=== PATIENT | male | born 1940 | race Caucasian/White ===

== ENCOUNTER 2020-09-10 10:53 | Inpatient (IN) | payer MEDICARE ==
[2020-09-10 12:07] LABS: ALT (SGPT) 14 U/L (8-55); AST (SGOT) 25 U/L (5-34); Albumin 2.9 g/dL (3.4-4.8); Alkaline Phosphatase 141 U/L (40-110); Anion Gap 8 mmol/L (10-20); BUN (Urea Nitrogen) 16 mg/dL (8.4-25.7); Bilirubin, Total 0.4 mg/dL (0.2-1.2); Calc. Creatinine Clearance 0 mL/min (70-130); Calcium 7.8 mg/dL (7.8-10.44); Carbon Dioxide 25 mmol/L (23-31); Chloride 107 mmol/L (98-107); Globulin 2.7 g/dL (2.4-3.5); Glucose 112 mg/dL (83-110); Potassium 3.2 mmol/L (3.5-5.1); Protein, Total 5.6 g/dL (5.8-8.1); Sodium 137 mmol/L (136-145)
[2020-09-10 12:12] LABS: Hemoglobin 13.3 g/dL (14.0-18.0); Mean Corpuscular HGB CONC 33.4 g/dL (32.0-36.0); Mean Corpuscular Hemoglobin 32.1 pg (27.0-31.0); Mean Platelet Volume 9.3 fL (7.4-10.4); Platelet Count 118 thou/uL (130-400); Red Blood Cell (RBC) Count 4.15 mill/uL (4.70-6.10); White Blood Cell (WBC) Count 5.7 thou/uL (4.8-10.8)
[2020-09-10 12:13] LABS: Band 5 % (5-11); Eosinophils 3 % (0-10); Lymphocytes 25 % (21-51); MDiff Complete? YES; Monocytes 7 % (0-10); Myelocyte 1 % (0-0); Neutrophil 57 % (42-75); Platelet Morphology Comment Appears Decreased; Polychromasia SLIGHT = 2-3 cells (100X) (0-2/hpf); Reactive Lymphocytes 2 % (0-10)
[2020-09-10 12:24] LABS: CKMB 0.9 ng/mL (0-6.6)
[2020-09-10] MEDS ORDERED: Aspirin Chewable 81 MG TAB ONE (12:51)
[2020-09-10] MEDS ORDERED: cefTRIAXone\\ROCEPHIN 2 GM VIAL ONE (12:51)
[2020-09-10] MEDS ORDERED: Potassium Chloride 20 MEQ TAB ONE (12:51)
[2020-09-10] MEDS ORDERED: Azithromycin 500 MG VIAL ONE (12:51)
[2020-09-10] MEDS ORDERED: Ondansetron ODT 4 MG TAB PO PRN (13:55)
[2020-09-10] MEDS ORDERED: Acetaminophen 650 MG Suppository PR PRN (13:55)
[2020-09-10] MEDS ORDERED: Ondansetron PF 4 MG/2 ML Vial IVP PRN (13:55)
[2020-09-10] MEDS ORDERED: Acetaminophen 325 MG TAB PO PRN (13:55)
[2020-09-10] MEDS ORDERED: Guaifenesin DM 100-10/5 ML UDCUP PO PRN (13:55)
[2020-09-10 15:01] LABS: Troponin I 0.039 ng/mL (< 0.028)
[2020-09-10 17:48] VITALS: BMI 25.2
[2020-09-10 18:30] LABS: Troponin I 0.031 ng/mL (< 0.028)
[2020-09-10] MEDS: hydrALAZINE 20 MG/ML VIAL SLOW IVP PRN (22:13)
[2020-09-11] MEDS: hydrALAZINE 20 MG/ML VIAL SLOW IVP PRN ×2 (01:09→09:44)
[2020-09-11] MEDS: Levothyroxine Sodium 50 MCG TAB PO SCH (05:50)
[2020-09-11 06:14] LABS: #Lymphocytes 1.4 thou/uL (1.20-3.40); #Monocytes 0.4 thou/uL (0.11-0.59); #Neutrophils 3.7 thou/uL (1.40-6.50); %Basophils 0.6 % (0.0-1.0); %Eosinophils 0.5 % (0.0-10.0); %Lymphocytes 25.5 % (21.0-51.0); %Monocytes 6.9 % (0.0-10.0); %Neutrophils 66.6 % (42.0-75.0); Hemoglobin 13.1 g/dL (14.0-18.0); Mean Corpuscular HGB CONC 34.7 g/dL (32.0-36.0); Mean Corpuscular Hemoglobin 32.7 pg (27.0-31.0); Mean Corpuscular Volume 94.2 fL (78.0-98.0); Mean Platelet Volume 9.1 fL (7.4-10.4); Platelet Count 130 thou/uL (130-400); RBC Distribution Width 11.9 % (11.5-14.5); Red Blood Cell (RBC) Count 3.99 mill/uL (4.70-6.10); White Blood Cell (WBC) Count 5.6 thou/uL (4.8-10.8)
[2020-09-11 06:33] LABS: Anion Gap 12 mmol/L (10-20); BUN (Urea Nitrogen) 14 mg/dL (8.4-25.7); Calc. Creatinine Clearance 96 mL/min (70-130); Calcium 7.6 mg/dL (7.8-10.44); Carbon Dioxide 23 mmol/L (23-31); Chloride 107 mmol/L (98-107); Glucose 84 mg/dL (83-110); Potassium 3.2 mmol/L (3.5-5.1); Sodium 139 mmol/L (136-145)
[2020-09-11] MEDS ORDERED: Albuterol Sulfate 2.5 mg/3 ml Neb NEB PRN (08:14)
[2020-09-11] MEDS ORDERED: Calcium Carbonate 500 MG ChewTAB PO PRN (08:15)
[2020-09-11] MEDS ORDERED: Senokot S 8.6-50 MG TAB PO PRN (08:15)
[2020-09-11] MEDS ORDERED: Cepastat Lozenges 1 LOZ PO PRN (08:15)
[2020-09-11] MEDS ORDERED: Loratadine 10 MG TAB PO PRN (08:15)
[2020-09-11] MEDS ORDERED: Potassium Chloride 20 MEQ TAB PO SCH (08:15)
[2020-09-11] MEDS ORDERED: Loperamide HCl 2 MG CAP PO PRN (08:15)
[2020-09-11] MEDS ORDERED: Benzonatate 100 MG CAP PO PRN (08:15)
[2020-09-11] MEDS ORDERED: GUAIFENESIN SF SOLN 200 MG/10 ML UDCUP PO PRN (08:15)
[2020-09-11] MEDS ORDERED: Sodium Chloride 0.65% Nasal 44 ML BOT EA NARE PRN (08:15)
[2020-09-11] MEDS: Maxitrol 0.1% Opth Oint 3.5 GM TUBE L EYE SCH ×3 (09:39→20:38)
[2020-09-11] MEDS: Enoxaparin Sodium 40 MG/0.4 ML SYRINGE SC SCH (09:40)
[2020-09-11] MEDS: Cholecalciferol 1,000 UNITS (25 MCG) TAB PO SCH (09:41)
[2020-09-11] MEDS: Ascorbic Acid 500 mg Chewable Tablet PO SCH (09:41)
[2020-09-11] MEDS: Zinc Sulfate 220 MG CAP PO SCH (09:42)
[2020-09-11] MEDS: Dexamethasone 4 MG TAB PO SCH (09:42)
[2020-09-11] MEDS ORDERED: Amlodipine 10 MG TAB PO SCH (13:00)
[2020-09-11] MEDS ORDERED: FLU VACC QS2020-21(65YR UP)/PF 240 MCG/0.7 ML SYRINGE IM ONE (18:00)
[2020-09-11 19:43] LABS: SARS-CoV-2 IgG Ab Reactive (NonReactive); SARS-CoV-2 IgG Index 1.55 S/CO (< 1.40)
[2020-09-12] MEDS: hydrALAZINE 20 MG/ML VIAL SLOW IVP PRN ×2 (00:49→12:09)
[2020-09-12 05:09] LABS: #Lymphocytes 1.4 thou/uL (1.20-3.40); #Monocytes 0.5 thou/uL (0.11-0.59); #Neutrophils 3.2 thou/uL (1.40-6.50); %Basophils 0.6 % (0.0-1.0); %Eosinophils 0.7 % (0.0-10.0); %Lymphocytes 26.6 % (21.0-51.0); %Monocytes 10.2 % (0.0-10.0); %Neutrophils 61.9 % (42.0-75.0); Hemoglobin 13.4 g/dL (14.0-18.0); Mean Corpuscular HGB CONC 33.9 g/dL (32.0-36.0); Mean Corpuscular Hemoglobin 32.1 pg (27.0-31.0); Mean Corpuscular Volume 94.6 fL (78.0-98.0); Mean Platelet Volume 8.2 fL (7.4-10.4); Platelet Count 149 thou/uL (130-400); Red Blood Cell (RBC) Count 4.17 mill/uL (4.70-6.10); White Blood Cell (WBC) Count 5.2 thou/uL (4.8-10.8)
[2020-09-12 05:28] LABS: Anion Gap 13 mmol/L (10-20); BUN (Urea Nitrogen) 13 mg/dL (8.4-25.7); Calc. Creatinine Clearance 97 mL/min (70-130); Calcium 7.7 mg/dL (7.8-10.44); Carbon Dioxide 22 mmol/L (23-31); Chloride 106 mmol/L (98-107); Glucose 94 mg/dL (83-110); Potassium 3.5 mmol/L (3.5-5.1); Sodium 137 mmol/L (136-145)
[2020-09-12] MEDS: Levothyroxine Sodium 50 MCG TAB PO SCH (05:55)
[2020-09-12] MEDS: Enoxaparin Sodium 40 MG/0.4 ML SYRINGE SC SCH (08:39)
[2020-09-12] MEDS: Zinc Sulfate 220 MG CAP PO SCH (08:39)
[2020-09-12] MEDS: Dexamethasone 4 MG TAB PO SCH (08:40)
[2020-09-12] MEDS: Ascorbic Acid 500 mg Chewable Tablet PO SCH (08:40)
[2020-09-12] MEDS: Cholecalciferol 1,000 UNITS (25 MCG) TAB PO SCH (08:44)
[2020-09-12] MEDS: Maxitrol 0.1% Opth Oint 3.5 GM TUBE L EYE SCH (08:45)
[2020-09-12] MEDS ORDERED: NIFEdipine XL 30 MG TAB PO SCH (09:00)
[2020-09-12] MEDS ORDERED: Amlodipine 10 MG TAB PO SCH (09:00)
[2020-09-12 12:00] VITALS: BP 187/84; TEMP 97.9
== END 2020-09-12 14:17 | disposition home or self-care (01) | DRG 177 ==
LOC: ERS 10:53 → ERHOLD 13:38 → 2SW 17:10 → OBSVTOIN 09-11 08:17
PROVIDERS: ADMIT Internal Medicine; ATTEND Internal Medicine
PROC: 8E0ZXY6 Isolation (ICD-10-PCS; principal; 2020-09-11)
DX: U07.1 COVID-19 (principal); J12.82 Pneumonia due to coronavirus disease 2019; J96.01 Acute respiratory failure with hypoxia; I21.A1 Myocardial infarction type 2; K21.9 Gastro-esophageal reflux disease without esophagitis; E03.9 Hypothyroidism, unspecified; K57.90 Diverticulosis of intestine, part unspecified, without perforation or abscess without bleeding; N40.0 Benign prostatic hyperplasia without lower urinary tract symptoms; I10 Essential (primary) hypertension; F17.210 Nicotine dependence, cigarettes, uncomplicated; R19.7 Diarrhea, unspecified; E87.6 Hypokalemia; Z79.890 Hormone replacement therapy; I25.2 Old myocardial infarction; Z79.899 Other long term (current) drug therapy; Z98.890 Other specified postprocedural states; Z79.51 Long term (current) use of inhaled steroids
CPT/HCPCS: 36415; 71045; 80048; 80053; 82553; 82728; 84145; 84443; 84484; 85025; 86140; 86769; 93005; 96365; 96367; 96375; G0378; J0360; J0456; J0696; J1200; J1650; J2405; J8540

== ENCOUNTER 2024-01-14 08:19 | Inpatient (IN) | payer MEDICARE, OTHER ==
[2024-01-14] MEDS ORDERED: Metoprolol Tartrate 5 MG (5 mL) VIAL ONE (08:34)
[2024-01-14 08:48] LABS: #Basophils Less than 0.03 10x3/uL (0.0-0.2); %Basophils 0.2 % (0.0-1.0); %Eosinophils 2.1 % (0.0-10.0); %Lymphocytes 11.9 % (21.0-51.0); %Monocytes 5.4 % (0.0-10.0); %Neutrophils 79.9 % (42.0-75.0); Hematocrit 41.2 % (42.0-52.0); Hemoglobin 14.2 g/dL (14.0-18.0); Mean Corpuscular HGB CONC 34.5 g/dL (32.0-36.0); Mean Corpuscular Hemoglobin 31.7 pg (27.0-31.0); Mean Platelet Volume 9.7 fL (7.4-10.4); Platelet Count 254 10x3/uL (130-400); RBC Distribution Width 13.6 % (11.5-14.5); Red Blood Cell (RBC) Count 4.48 mill/uL (4.70-6.10)
[2024-01-14] MEDS ORDERED: Diltiazem HCl/D5W 125 ML ONE (09:09)
[2024-01-14] MEDS ORDERED: dilTIAZem 25 MG/5 ML VIAL ONE (09:10)
[2024-01-14 09:11] LABS: Troponin I 0.018 ng/mL (< 0.028)
[2024-01-14 09:13] LABS: ALT (SGPT) 9 U/L (8-55); AST (SGOT) 14 U/L (5-34); Alkaline Phosphatase 134 U/L (40-110); Anion Gap 12 mmol/L (10-20); BUN (Urea Nitrogen) 14 mg/dL (8.4-25.7); Bilirubin, Total 0.8 mg/dL (0.2-1.2); Calc. Creatinine Clearance 0 mL/min (70-130); Carbon Dioxide 27 mmol/L (23-31); Chloride 102 mmol/L (98-107); Estimated GFR 71; Globulin 3.7 g/dL (2.4-3.5); Glucose 126 mg/dL (83-110); Potassium 3.5 mmol/L (3.5-5.1); Protein, Total 6.7 g/dL (5.8-8.1); Sodium 137 mmol/L (136-145)
[2024-01-14] MEDS ORDERED: Enoxaparin 80 MG (0.8 mL) SYRINGE ONE (09:28)
[2024-01-14] MEDS ORDERED: Ondansetron ODT 4 MG TAB SL PRN (10:00)
[2024-01-14] MEDS ORDERED: Ondansetron PF 4 MG/2 ML Vial IVP PRN (10:00)
[2024-01-14] MEDS ORDERED: Furosemide 20 MG (2 mL) VIAL ONE (10:18)
[2024-01-14] MEDS ORDERED: Digoxin 0.5 MG/2 ML AMP SLOW IVP SCH (10:30)
[2024-01-14] MEDS ORDERED: Amiodarone 450 MG in Dextrose 5% in Water 250 ML IVPB SCH (10:45)
[2024-01-14] MEDS ORDERED: dilTIAZem 125 MG in Sodium Chloride 0.9% 100 ML IVPB SCH (10:45)
[2024-01-14 10:46] LABS: Magnesium 1.7 mg/dL (1.6-2.6)
[2024-01-14] MEDS: Amiodarone 150 MG in Dextrose 5% in Water 100 ML IVPB SCH (11:45)
[2024-01-14] MEDS: Potassium Chloride 20 MEQ TAB PO SCH (11:45)
[2024-01-14 11:47] LABS: Troponin I 0.118 ng/mL (< 0.028)
[2024-01-14 12:34] VITALS: BMI 20.9
[2024-01-14] MEDS: Magnesium 2 GM/50 ML(in water) 2 GM in Premix 1 BAG IVPB SCH (19:17)
[2024-01-14] MEDS: Enoxaparin 80 MG (0.8 mL) SYRINGE SC SCH (19:18)
[2024-01-15 03:56] LABS: #Basophils Less than 0.03 10x3/uL (0.0-0.2); %Basophils 0.3 % (0.0-1.0); %Lymphocytes 22.1 % (21.0-51.0); %Monocytes 7.3 % (0.0-10.0); %Neutrophils 66.9 % (42.0-75.0); Hematocrit 34.2 % (42.0-52.0); Hemoglobin 11.4 g/dL (14.0-18.0); Mean Corpuscular HGB CONC 33.3 g/dL (32.0-36.0); Mean Corpuscular Hemoglobin 31.5 pg (27.0-31.0); Mean Corpuscular Volume 94.5 fL (78.0-98.0); Mean Platelet Volume 9.7 fL (7.4-10.4); Platelet Count 194 10x3/uL (130-400); RBC Distribution Width 13.9 % (11.5-14.5); Red Blood Cell (RBC) Count 3.62 mill/uL (4.70-6.10)
[2024-01-15 04:15] LABS: Anion Gap 9 mmol/L (10-20); BUN (Urea Nitrogen) 19 mg/dL (8.4-25.7); Calc. Creatinine Clearance 49 mL/min (70-130); Calcium 8.2 mg/dL (7.8-10.44); Carbon Dioxide 26 mmol/L (23-31); Chloride 107 mmol/L (98-107); Estimated GFR 70; Glucose 96 mg/dL (83-110); Magnesium 2.1 mg/dL (1.6-2.6); Potassium 3.7 mmol/L (3.5-5.1); Sodium 138 mmol/L (136-145)
[2024-01-15 04:29] LABS: Troponin I 2.195 ng/mL (< 0.028)
[2024-01-15] MEDS: Levothyroxine Sodium 50 MCG TAB PO SCH (05:27)
[2024-01-15] MEDS: Aspirin 81 mg Enteric Coated Tablet PO SCH (09:09)
[2024-01-15] MEDS: Atorvastatin Calcium 40 MG TAB PO SCH (19:49)
[2024-01-15] MEDS: hydrALAZINE 20 MG/ML VIAL SLOW IVP PRN (22:19)
[2024-01-16] MEDS: Levothyroxine Sodium 75 MCG TAB PO SCH (05:34)
[2024-01-16] MEDS: Acetaminophen 325 MG TAB PO PRN (06:11)
[2024-01-16] MEDS: NIFEdipine XL 30 MG ER.TAB PO SCH (14:36)
[2024-01-16] MEDS: Nicotine 7 MG PATCH TD SCH (14:36)
[2024-01-17] MEDS: NIFEdipine XL 30 MG ER.TAB PO SCH ×2 (07:28→19:16)
[2024-01-17 09:24] LABS: Hematocrit 38.6 % (42.0-52.0); Hemoglobin 12.9 g/dL (14.0-18.0); Mean Corpuscular HGB CONC 33.4 g/dL (32.0-36.0); Mean Corpuscular Hemoglobin 31.5 pg (27.0-31.0); Mean Corpuscular Volume 94.1 fL (78.0-98.0); Mean Platelet Volume 9.5 fL (7.4-10.4); Platelet Count 231 10x3/uL (130-400); RBC Distribution Width 13.7 % (11.5-14.5)
[2024-01-17 09:49] LABS: Anion Gap 11 mmol/L (10-20); BUN (Urea Nitrogen) 13 mg/dL (8.4-25.7); Calc. Creatinine Clearance 68 mL/min (70-130); Calcium 8.6 mg/dL (7.8-10.44); Carbon Dioxide 27 mmol/L (23-31); Chloride 102 mmol/L (98-107); Estimated GFR 87; Glucose 96 mg/dL (83-110); Potassium 3.4 mmol/L (3.5-5.1); Sodium 137 mmol/L (136-145)
[2024-01-17] MEDS: Potassium Bicarbonate/Cit Ac 20 MEQ TAB PO SCH (12:10)
[2024-01-17] MEDS ORDERED: Gentamicin 80 MG/2 ML VIAL ONE (13:14)
[2024-01-17] MEDS ORDERED: CEFAZOLIN 2 GM VIAL ONE (13:15)
[2024-01-17] MEDS ORDERED: fentaNYL 50 mcg/mL 1 mL Vial ONE (15:54)
[2024-01-17] MEDS ORDERED: Midazolam HCl 2 mg/2 ml Vial ONE (15:54)
[2024-01-17] MEDS ORDERED: Propofol 1,000 MG/100 ML VIAL IV ONE (16:08)
[2024-01-17] MEDS ORDERED: ePHEDrine Sulfate 50 MG/10 ML VIAL ONE (17:01)
[2024-01-17] MEDS ORDERED: Ondansetron HCl/PF 4 MG/2 ML Vial IVP PRN (17:56)
[2024-01-17] MEDS ORDERED: Promethazine HCl 25 MG/ML VIAL IM PRN (17:56)
[2024-01-17] MEDS: Cephalexin 250 MG CAP PO SCH (19:16)
[2024-01-18 07:36] VITALS: BP 146/73
[2024-01-18] MEDS: Dronedarone HCl 400 MG TAB PO SCH (09:45)
[2024-01-18 12:25] VITALS: TEMP 98.2
== END 2024-01-18 12:42 | disposition home or self-care (01) | DRG 242 ==
LOC: ERS 08:19 → IMCU/EMU 10:52
PROVIDERS: ADMIT Internal Medicine; ATTEND Internal Medicine
PROC: 0JH606Z Insertion of Pacemaker, Dual Chamber into Chest Subcutaneous Tissue and Fascia, Open Approach (ICD-10-PCS; principal; 2024-01-17)
PROC: 02H63JZ Insertion of Pacemaker Lead into Right Atrium, Percutaneous Approach (ICD-10-PCS; 2024-01-17)
PROC: 02HK3JZ Insertion of Pacemaker Lead into Right Ventricle, Percutaneous Approach (ICD-10-PCS; 2024-01-17)
DX: I49.5 Sick sinus syndrome (principal); I21.A1 Myocardial infarction type 2; I48.0 Paroxysmal atrial fibrillation; I25.10 Atherosclerotic heart disease of native coronary artery without angina pectoris; Z95.9 Presence of cardiac and vascular implant and graft, unspecified; E03.9 Hypothyroidism, unspecified; Z66 Do not resuscitate; F03.90 Unspecified dementia, unspecified severity, without behavioral disturbance, psychotic disturbance, mood disturbance, and anxiety; I10 Essential (primary) hypertension; F17.200 Nicotine dependence, unspecified, uncomplicated; W19.XXXA Unspecified fall, initial encounter; Z79.899 Other long term (current) drug therapy
CPT/HCPCS: 33208; 36415; 36416; 70450; 71045; 80048; 80053; 83735; 83880; 84439; 84443; 84484; 85025; 85027; 93005; 93306; 93880; C1785; C1898; J0282; J0360; J1580; J1650; J1940; J2250; J2704; J3010; J3475; J7070

== ENCOUNTER 2024-05-24 20:28 | Inpatient (IN) | payer MEDICARE ==
[2024-05-24] MEDS ORDERED: Ondansetron ODT 4 MG TAB PO PRN (22:04)
[2024-05-24] MEDS ORDERED: Ondansetron PF 4 MG/2 ML Vial IVP PRN (22:04)
[2024-05-24 22:18] LABS: #Basophils 0.03 10x3/uL (0.0-0.2); %Basophils 0.3 % (0.0-1.0); %Eosinophils 0.7 % (0.0-10.0); %Lymphocytes 12.5 % (21.0-51.0); %Monocytes 6.1 % (0.0-10.0); %Neutrophils 79.1 % (42.0-75.0); Hematocrit 31.6 % (42.0-52.0); Hemoglobin 10.5 g/dL (14.0-18.0); Mean Corpuscular HGB CONC 33.2 g/dL (32.0-36.0); Mean Corpuscular Volume 93.2 fL (78.0-98.0); Mean Platelet Volume 9.6 fL (7.4-10.4); Platelet Count 251 10x3/uL (130-400); Red Blood Cell (RBC) Count 3.39 mill/uL (4.70-6.10)
[2024-05-24 22:32] LABS: ALT (SGPT) 23 U/L (8-55); AST (SGOT) 19 U/L (5-34); Albumin 2.2 g/dL (3.4-4.8); Alkaline Phosphatase 119 U/L (40-110); Anion Gap 15 mmol/L (10-20); BUN (Urea Nitrogen) 57 mg/dL (8.4-25.7); Bilirubin, Total 0.2 mg/dL (0.2-1.2); Calc. Creatinine Clearance 0 mL/min (70-130); Calcium 8.5 mg/dL (7.8-10.44); Carbon Dioxide 20 mmol/L (23-31); Chloride 111 mmol/L (98-107); Estimated GFR 16; Globulin 3.8 g/dL (2.4-3.5); Glucose 145 mg/dL (83-110); Sodium 142 mmol/L (136-145)
[2024-05-24 23:22] VITALS: BMI 21.7
[2024-05-24] MEDS: Lactated Ringer's 1,000 ML IV SCH (23:22)
[2024-05-24] MEDS: cefTRIAXone\\ROCEPHIN 1 GM in Sodium Chloride 0.9% 100 ML IVPB SCH (23:23)
[2024-05-25 04:57] LABS: #Basophils 0.04 10x3/uL (0.0-0.2); %Basophils 0.4 % (0.0-1.0); %Eosinophils 1.2 % (0.0-10.0); %Lymphocytes 13.8 % (21.0-51.0); %Monocytes 8.1 % (0.0-10.0); %Neutrophils 75.4 % (42.0-75.0); Hematocrit 28.3 % (42.0-52.0); Hemoglobin 9.3 g/dL (14.0-18.0); Mean Corpuscular HGB CONC 32.9 g/dL (32.0-36.0); Mean Corpuscular Volume 94.3 fL (78.0-98.0); Mean Platelet Volume 9.7 fL (7.4-10.4); Platelet Count 238 10x3/uL (130-400); RBC Distribution Width 13.9 % (11.5-14.5)
[2024-05-25 06:02] LABS: Anion Gap 15 mmol/L (10-20); BUN (Urea Nitrogen) 60 mg/dL (8.4-25.7); Calc. Creatinine Clearance 14 mL/min (70-130); Calcium 8.3 mg/dL (7.8-10.44); Carbon Dioxide 20 mmol/L (23-31); Chloride 111 mmol/L (98-107); Estimated GFR 15; Glucose 82 mg/dL (83-110); Potassium 3.7 mmol/L (3.5-5.1); Sodium 142 mmol/L (136-145)
[2024-05-25] MEDS: Levothyroxine Sodium 75 MCG TAB PO SCH (06:08)
[2024-05-25] MEDS: Aspirin 81 mg Enteric Coated Tablet PO SCH (07:55)
[2024-05-25] MEDS: NIFEdipine XL 30 MG ER.TAB PO SCH ×2 (07:55→20:35)
[2024-05-25] MEDS: Amiodarone 200 MG TAB PO SCH (07:56)
[2024-05-25] MEDS: Multivit, Therapeutic 1 TAB PO SCH (07:56)
[2024-05-25] MEDS: Nicotine 21 MG PATCH TD SCH (10:12)
[2024-05-25] MEDS: Lactated Ringer's 1,000 ML IV SCH (10:12)
[2024-05-25] MEDS: Sodium Bicarbonate Tab 325 MG TAB PO SCH (10:12)
[2024-05-25] MEDS: Albumin 25% 25 GM (100 mL) BOT IVPB SCH (10:12)
[2024-05-25 10:50] LABS: Bacteria/HPF None Seen HPF (None Seen); Bilirubin Negative (Negative); Blood, Urine Negative (Negative); Clarity Clear (Clear); Glucose, Urine (Dipstick) Normal (Negative); Ketone, Urine Negative (Negative); Leukocyte Negative Leu/uL (Negative); Nitrite Negative (Negative); Protein, Urine (Dipstick) Negative (Neg-Trace); RBC/HPF 0-3 HPF (0-3); Specific Gravity, Urine 1.001 (1.002-1.036); Squamous Epithelial 0-3 HPF (0-3); Urobilinogen Normal mg/dL (Less than 2); WBC/HPF 0-3 HPF (0-3); pH, Urine 5.5 (5.0-9.0)
[2024-05-25 11:34] LABS: Creatinine, Urine 32.03 mg/dL (63-166); Protein, Urine Random Quant Less than 10 mg/dL (1-14); Sodium, Urine 61 mmol/L (Not Available)
[2024-05-25] MEDS: Acetaminophen 325 MG TAB PO PRN (12:54)
[2024-05-25] MEDS: Melatonin 3 MG TAB PO PRN (20:36)
[2024-05-26] MEDS: Haloperidol Lactate 5 MG/ML VIAL IM SCH (03:15)
[2024-05-26] MEDS: Haloperidol Lactate 5 MG/ML VIAL ONE (04:20)
[2024-05-26 07:47] LABS: Albumin 2.7 g/dL (3.4-4.8); Anion Gap 15 mmol/L (10-20); BUN (Urea Nitrogen) 55 mg/dL (8.4-25.7); BUN/Creatinine Ratio 14.78; Calc. Creatinine Clearance 15 mL/min (70-130); Calcium 8.6 mg/dL (7.8-10.44); Carbon Dioxide 22 mmol/L (23-31); Chloride 110 mmol/L (98-107); Estimated GFR 15; Glucose 102 mg/dL (83-110); Phosphorus 4.5 mg/dL (2.3-4.7); Potassium 3.7 mmol/L (3.5-5.1); Sodium 143 mmol/L (136-145)
[2024-05-26] MEDS ORDERED: Lactated Ringer's 1,000 ML IV SCH (09:45)
[2024-05-26 10:16] LABS: #Basophils 0.03 10x3/uL (0.0-0.2); %Basophils 0.2 % (0.0-1.0); %Eosinophils 0.6 % (0.0-10.0); %Lymphocytes 14.6 % (21.0-51.0); %Monocytes 6.7 % (0.0-10.0); %Neutrophils 77.2 % (42.0-75.0); Hematocrit 29.1 % (42.0-52.0); Hemoglobin 9.8 g/dL (14.0-18.0); Mean Corpuscular HGB CONC 33.7 g/dL (32.0-36.0); Mean Corpuscular Hemoglobin 31.1 pg (27.0-31.0); Mean Corpuscular Volume 92.4 fL (78.0-98.0); Mean Platelet Volume 9.9 fL (7.4-10.4); Platelet Count 269 10x3/uL (130-400); Red Blood Cell (RBC) Count 3.15 mill/uL (4.70-6.10)
[2024-05-26] MEDS: Folic Acid 1 MG TAB PO SCH (10:55)
[2024-05-26] MEDS: Cyanocobalamin (Vitamin B-12) 1,000 MCG TAB PO SCH (10:55)
[2024-05-26] MEDS: Albumin 25% 25 GM (100 mL) BOT IVPB SCH ×2 (10:56→14:02)
[2024-05-26] MEDS ORDERED: traZODone HCl 50 MG TAB PO PRN (12:08)
[2024-05-26] MEDS: Sodium Bicarbonate 150 MEQ in Sterile Water 1,000 ML IV SCH (12:33)
[2024-05-26] MEDS: Transdermal Patch Removal TOP SCH (12:33)
[2024-05-26] MEDS: traZODone HCl 50 MG TAB PO SCH (20:04)
[2024-05-26] MEDS: Tamsulosin HCl 0.4 MG CAP PO SCH (20:04)
[2024-05-27 05:12] LABS: #Basophils Less than 0.03 10x3/uL (0.0-0.2); %Basophils 0.2 % (0.0-1.0); %Eosinophils 0.6 % (0.0-10.0); %Lymphocytes 9.4 % (21.0-51.0); %Neutrophils 81.9 % (42.0-75.0); Hematocrit 28.5 % (42.0-52.0); Hemoglobin 9.5 g/dL (14.0-18.0); Mean Corpuscular HGB CONC 33.3 g/dL (32.0-36.0); Mean Corpuscular Volume 93.1 fL (78.0-98.0); Mean Platelet Volume 9.2 fL (7.4-10.4); Platelet Count 256 10x3/uL (130-400); RBC Distribution Width 14.1 % (11.5-14.5); Red Blood Cell (RBC) Count 3.06 mill/uL (4.70-6.10)
[2024-05-27 05:28] LABS: Iron 16 ug/dL (65-175); Iron Binding Capacity, Total 124 mcg/dL (261-462)
[2024-05-27 05:29] LABS: Albumin 3.3 g/dL (3.4-4.8); Anion Gap 17 mmol/L (10-20); BUN (Urea Nitrogen) 52 mg/dL (8.4-25.7); Calc. Creatinine Clearance 14 mL/min (70-130); Calcium 8.9 mg/dL (7.8-10.44); Carbon Dioxide 25 mmol/L (23-31); Chloride 106 mmol/L (98-107); Estimated GFR 15; Glucose 131 mg/dL (83-110); Iron 14 ug/dL (65-175); Iron Binding Capacity, Total 125 mcg/dL (261-462); Phosphorus 4.1 mg/dL (2.3-4.7); Potassium 4.1 mmol/L (3.5-5.1); Sodium 144 mmol/L (136-145)
[2024-05-27] MEDS: Morphine 2 MG/ML VIAL SLOW IVP SCH (11:04)
[2024-05-27] MEDS: Sodium Ferric Gluconate 250 MG in Sodium Chloride 0.9% 250 ML 250 ML IVPB SCH (11:05)
[2024-05-27] MEDS: Morphine 2 MG/ML VIAL SLOW IVP PRN (16:14)
[2024-05-28] MEDS: Lidocaine 4% Patch TD SCH (08:24)
[2024-05-28 15:23] VITALS: BP 148/62; TEMP 97.6
[2024-05-28] MEDS ORDERED: Transdermal Patch Removal TOP SCH (21:00)
== END 2024-05-28 15:15 | disposition hospice, home (50) | DRG 683 ==
LOC: MSONC 20:28
PROVIDERS: ADMIT Family Medicine; ATTEND Internal Medicine
PROC: 0TJB8ZZ Inspection of Bladder, Via Natural or Artificial Opening Endoscopic (ICD-10-PCS; principal; 2024-05-26)
DX: N17.9 Acute kidney failure, unspecified (principal); E87.20 Acidosis, unspecified; N30.00 Acute cystitis without hematuria; I48.0 Paroxysmal atrial fibrillation; I25.10 Atherosclerotic heart disease of native coronary artery without angina pectoris; R32 Unspecified urinary incontinence; E03.9 Hypothyroidism, unspecified; N13.6 Pyonephrosis; Z66 Do not resuscitate; I49.5 Sick sinus syndrome; Z51.5 Encounter for palliative care; N40.0 Benign prostatic hyperplasia without lower urinary tract symptoms; D50.9 Iron deficiency anemia, unspecified; I10 Essential (primary) hypertension; E88.09 Other disorders of plasma-protein metabolism, not elsewhere classified; Z79.890 Hormone replacement therapy; Z79.899 Other long term (current) drug therapy
CPT/HCPCS: 36415; 76770; 80048; 80053; 80069; 81001; 82040; 82550; 82570; 82728; 83540; 83550; 84156; 84300; 85025; 87086; A4217; J0696; J1630; J2272; J2916; J7050; J7120; P9047